=== PATIENT | female | born 1985 | race American Indian/Alaskan Native ===

== ENCOUNTER 2017-04-28 06:23 | Emergency (ER) | payer MEDICAID, OTHER ==
[2017-04-28 07:30] LABS: Basophils % (Auto) 0.5 % (0.0-1.8); Eosinophils % (Auto) 1.9 % (0.0-4.3); Hematocrit 40.3 % (30.3-42.9); Mean Corpuscular HGB Conc 32 % (30-34); Mean Corpuscular Volume 75 fl (79-97); Platelet Count 295 K/mm3 (140-440); Red Blood Count 5.38 M/mm3 (3.65-5.03); Red Cell Distribution Width 14.1 % (13.2-15.2); White Blood Count 8.2 K/mm3 (4.5-11.0)
[2017-04-28 07:32] LABS: Mean Corpuscular Hemoglobin 24 pg (28-32)
[2017-04-28 07:41] LABS: Anion Gap 17 mmol/L; Blood Urea Nitrogen 10 mg/dL (7-17); Calcium 9.1 mg/dL (8.4-10.2); Carbon Dioxide 24 mmol/L (22-30); Chloride 95.8 mmol/L (98-107); Glucose 205 mg/dL (65-100); Potassium 4.1 mmol/L (3.6-5.0); Sodium 133 mmol/L (137-145)
[2017-04-28 07:48] LABS: Bilirubin,Urine NEG (Negative); Blood,Urine NEG (Negative); Ketones,Urine NEG (Negative); Leukocyte Esterase,Urine NEG (Negative); Mucus,Urine FEW /HPF; Nitrite,Urine NEG (Negative); Protein,Urine <15 mg/dL mg/dL (Negative); Urobilinogen,Urine < 2.0 mg/dL (<2.0)
[2017-04-28 08:46] LABS: Bacteria,Urine 1+ /HPF (Negative)
--- NOTE | 2017-04-28 09:19 | XRay Report ---
ROUTINE CHEST, TWO VIEWS: HISTORY: Shortness of breath. The trachea, heart, mediastinal contour, lung salas and bony thorax are unremarkable. IMPRESSION: Unremarkable chest x-ray.
--- NOTE | 2017-04-28 15:09 | Emergency Department Report ---
ED Shortness of Breath HPI - General Chief Complaint: Dyspnea/Respdistress Stated Complaint: SHORTNESS OF BREATH, DIZZINESS Time Seen by Provider: 04/28/17 15:05 Source: patient Mode of arrival: Ambulatory Limitations: No Limitations - History of Present Illness Initial Comments: Patient is a 29 0 female with a history of diabetes presenting to the ER with dizziness. Patient reports she woke up this morning with chest pressure, shortness of breath, and a burning sensation extending from her toes only to the top of her head. Patient reports the chest pain shortness of breath had resolved but her dizziness still remains. The penis is described as room spinning and unsteady gait. Patient is a diabetic and takes insulin in the morning and at night, however did not take her insulin and did eat breakfast this morning. No other history of vertigo. Otherwise no fevers, chills, headache, abdominal pain, extremity swelling or pain, travel, falls, syncope, or sick contacts - Related Data Previous Rx's Medication Instructions Recorded Last Taken Type Meclizine [Antivert] 25 mg PO TID PRN #30 tablet 04/28/17 Unknown Rx Allergies Allergy/AdvReac Type Severity Reaction Status Date / Time No Known Allergies Allergy Unverified 05/23/15 08:08 ED Review of Systems ROS: Stated complaint: SHORTNESS OF BREATH, DIZZINESS Other details as noted in HPI Comment: All other systems reviewed and negative ED Past Medical Hx - Past Medical History Previous Medical History?: Yes Hx Diabetes: Yes Additional medical history: Seasonal allergies - Surgical History Additional Surgical History: - Social History Smoking Status: Never Smoker - Medications Home Medications: Home Medications Medication Instructions Recorded Confirmed Last Taken Type Meclizine [Antivert] 25 mg PO TID PRN #30 tablet 04/28/17 Unknown Rx ED Physical Exam - General Limitations: No Limitations General appearance: alert, in no apparent distress - Head Head exam: Present: atraumatic, normocephalic - Eye Eye exam: Present: normal appearance - ENT ENT exam: Present: mucous membranes moist - Neck Neck exam: Present: normal inspection - Respiratory Respiratory exam: Present: normal lung sounds bilaterally. Absent: respiratory distress - Cardiovascular Cardiovascular Exam: Present: regular rate, normal rhythm. Absent: systolic murmur, diastolic murmur, rubs, gallop - GI/Abdominal GI/Abdominal exam: Present: soft, normal bowel sounds - Extremities Exam Extremities exam: Present: normal inspection - Back Exam Back exam: Present: normal inspection - Neurological Exam Neurological exam: Present: alert, oriented X3, CN II-XII intact, abnormal gait (Pt is unsteady on her feet due to dizziness). Absent: motor sensory deficit - Psychiatric Psychiatric exam: Present: normal affect, normal mood - Skin Skin exam: Present: warm, dry, intact, normal color. Absent: rash ED Course Vital Signs 04/28/17 04/28/17 04/28/17 07:05 14:22 14:54 Temperature 98.1 F Pulse Rate 66 72 Respiratory 18 16 Rate Blood Pressure 120/83 Blood Pressure 135/96 [Right] O2 Sat by Pulse 97 98 87 Oximetry 04/28/17 04/28/17 04/28/17 15:00 15:12 15:13 Temperature 98.3 F Pulse Rate 80 Respiratory 18 18 Rate Blood Pressure 130/73 Blood Pressure 123/82 [Right] O2 Sat by Pulse 99 100 100 Oximetry - Reevaluation(s) Reevaluation #1: 04/28/17 16:59 Pt re-evalauted, patient reports significant improvement. Pt ambulating in the Ed without neurological dysfunction, advised patient not to drive if she is dizzy, patient understood ED Medical Decision Making - Lab Data Result diagrams: 04/28/17 07:13 04/28/17 07:13 - EKG Data -: EKG Interpreted by Me - EKG Data 04/28/17 15:08 06:28 EKG NSR with SR at 72 bpm, QTc:431ms, normal axis, no LVH, no ST changes, no STEMI Critical care attestation.: If time is entered above; I have spent that time in minutes in the direct care of this critically ill patient, excluding procedure time. ED Disposition Clinical Impression: Dizzinesses Disposition: DC-01 TO HOME OR SELFCARE Is pt being admited?: No Condition: Stable Additional Instructions: PLEASE DO NOT OPERATE ANY VEHICLES OR MACHINERY IF YOU ARE EXPERIENCING DIZZINESS Prescriptions: Meclizine [Antivert] 25 mg PO TID PRN #30 tablet PRN Reason: Vertigo Referrals: PRIMARY CARE, [Primary Care Provider] - 3-5 Days Forms: Work/School Release Form(ED)
[2017-04-28] MEDS ORDERED: NACL 0.9% 1000 ML 1,000 ML IV ONE (15:13)
[2017-04-28] MEDS ORDERED: ANTIVERT PO ONE (15:13)
[2017-04-28 17:56] VITALS: BP 130/76
== END 2017-04-28 18:32 | disposition home or self-care (01) ==
LOC: ED 06:23
DX: R42 Dizziness and giddiness (principal); E11.9 Type 2 diabetes mellitus without complications
CPT/HCPCS: 36415; 71020; 80048; 81001; 82962; 84484; 84703; 85025; 85379; 93005; 93010; 96360; 99284; J7030

== ENCOUNTER 2019-07-08 09:05 | Emergency (ER) | payer BC ==
[2019-07-08] MEDS ORDERED: NACL 0.9% 1000 ML 1,000 ML IV ONE ×3 (09:41→10:51)
[2019-07-08 10:04] LABS: Basophils # (Auto) 0.1 K/mm3 (0.0-0.1); Eosinophils % (Auto) 0.6 % (0.0-4.3); Hematocrit 40.7 % (30.3-42.9); Hemoglobin 13.4 gm/dl (10.1-14.3); Lymphocytes # (Auto) 1.9 K/mm3 (1.2-5.4); Lymphocytes % (Auto) 24.5 % (13.4-35.0); Mean Corpuscular HGB Conc 33 % (30-34); Mean Corpuscular Volume 75 fl (79-97); Monocytes # (Auto) 0.5 K/mm3 (0.0-0.8); Platelet Count 281 K/mm3 (140-440); Red Blood Count 5.41 M/mm3 (3.65-5.03)
[2019-07-08 10:20] LABS: Alanine Aminotransferase 11 units/L (7-56); Albumin 4.1 g/dL (3.9-5); BUN/Creatinine Ratio 20; Blood Urea Nitrogen 10 mg/dL (7-17); Calcium 9.4 mg/dL (8.4-10.2); Hemolysis Index 46
[2019-07-08 10:45] LABS: Bilirubin,Urine NEG (Negative); Blood,Urine NEG (Negative); Color,Urine Straw (Yellow); Protein,Urine <15 mg/dL mg/dL (Negative); Urobilinogen,Urine < 2.0 mg/dL (<2.0)
[2019-07-08] MEDS ORDERED: HumuLIN R IV ONE (10:51)
--- NOTE | 2019-07-08 13:20 | Emergency Department Report ---
ED General Adult HPI - General Chief complaint: Dizziness Stated complaint: DIZZY/DOUBLE VISION/HBS Time Seen by Provider: 07/08/19 09:41 Source: patient Mode of arrival: Ambulatory Limitations: No Limitations - History of Present Illness Initial comments: Patient is a 34-year-old female with a past smoking history of diabetes who is presenting with 2 weeks of progressively worsening fatigue. Patient also started having a headache and some mild nausea with no vomiting today. Patient states that she took her blood sugar earlier today and it read high. The patient denies current nausea vomiting fevers chills or diarrhea. Patient states that she does have some urinary frequency but no dysuria. - Related Data Previous Rx's Medication Instructions Recorded Last Taken Type Meclizine [Antivert] 25 mg PO TID PRN #30 tablet 04/28/17 Unknown Rx Ibuprofen [Motrin] 600 mg PO Q8H PRN #20 tablet 10/01/18 Unknown Rx Ondansetron [Zofran Odt] 4 mg PO Q8HR PRN #20 tab.rapdis 10/01/18 Unknown Rx Allergies Allergy/AdvReac Type Severity Reaction Status Date / Time No Known Allergies Allergy Verified 09/25/18 14:14 ED Review of Systems ROS: Stated complaint: DIZZY/DOUBLE VISION/HBS Other details as noted in HPI Comment: All other systems reviewed and negative ED Past Medical Hx - Past Medical History Previous Medical History?: Yes Hx Diabetes: Yes Additional medical history: Seasonal allergies - Surgical History Past Surgical History?: Yes Additional Surgical History: - Social History Smoking Status: Never Smoker Substance Use Type: None - Medications Home Medications: Home Medications Medication Instructions Recorded Confirmed Last Taken Type Meclizine [Antivert] 25 mg PO TID PRN #30 tablet 04/28/17 Unknown Rx Ibuprofen [Motrin] 600 mg PO Q8H PRN #20 tablet 10/01/18 Unknown Rx Ondansetron [Zofran Odt] 4 mg PO Q8HR PRN #20 tab.rapdis 10/01/18 Unknown Rx ED Physical Exam - General Limitations: No Limitations General appearance: alert, in no apparent distress - Head Head exam: Present: atraumatic, normocephalic - Eye Eye exam: Present: normal appearance, PERRL, EOMI - ENT ENT exam: Present: mucous membranes dry - Neck Neck exam: Present: normal inspection - Respiratory Respiratory exam: Present: normal lung sounds bilaterally. Absent: respiratory distress, wheezes, rales, rhonchi - Cardiovascular Cardiovascular Exam: Present: regular rate, normal rhythm. Absent: systolic murmur, diastolic murmur, rubs, gallop - GI/Abdominal GI/Abdominal exam: Present: soft, normal bowel sounds. Absent: distended, tenderness, guarding - Extremities Exam Extremities exam: Present: normal inspection - Back Exam Back exam: Present: normal inspection - Neurological Exam Neurological exam: Present: alert, oriented X3 - Psychiatric Psychiatric exam: Present: normal affect, normal mood - Skin Skin exam: Present: warm, dry, intact, normal color. Absent: rash ED Course Vital Signs 07/08/19 07/08/19 09:13 09:55 Temperature 98.4 F Pulse Rate 91 H Respiratory 16 16 Rate Blood Pressure 123/77 O2 Sat by Pulse 97 Oximetry ED Medical Decision Making - Lab Data Result diagrams: 07/08/19 09:55 07/08/19 09:55 Lab Results 07/08/19 07/08/19 07/08/19 Range/Units 09:21 09:55 09:55 WBC 7.6 (4.5-11.0) K/mm3 RBC 5.41 H (3.65-5.03) M/mm3 Hgb 13.4 (10.1-14.3) gm/dl Hct 40.7 (30.3-42.9) % MCV 75 L (79-97) fl MCH 25 L (28-32) pg MCHC 33 (30-34) % RDW 14.0 (13.2-15.2) % Plt Count 281 (140-440) K/mm3 Lymph % (Auto) 24.5 (13.4-35.0) % Lynn % (Auto) 6.0 (0.0-7.3) % Eos % (Auto) 0.6 (0.0-4.3) % Baso % (Auto) 1.0 (0.0-1.8) % Lymph # 1.9 (1.2-5.4) K/mm3 Lynn # 0.5 (0.0-0.8) K/mm3 Eos # 0.0 (0.0-0.4) K/mm3 Baso # 0.1 (0.0-0.1) K/mm3 Seg Neutrophils % 67.9 (40.0-70.0) % Seg Neutrophils # 5.1 (1.8-7.7) K/mm3 Sodium 131 L (137-145) mmol/L Potassium 4.1 (3.6-5.0) mmol/L Chloride 95.1 L (98-107) mmol/L Carbon Dioxide 22 (22-30) mmol/L Anion Gap 18 mmol/L BUN 10 (7-17) mg/dL Creatinine 0.5 L (0.7-1.2) mg/dL Estimated GFR > 60 ml/min BUN/Creatinine Ratio 20 % Glucose 485 H (65-100) mg/dL POC Glucose 483 H (70-105) Calcium 9.4 (8.4-10.2) mg/dL Total Bilirubin 0.20 (0.1-1.2) mg/dL AST 17 (5-40) units/L ALT 11 (7-56) units/L Alkaline Phosphatase 109 (35-129) units/L Total Protein 8.1 (6.3-8.2) g/dL Albumin 4.1 (3.9-5) g/dL Albumin/Globulin Ratio 1.0 % Lipase 74 H (13-60) units/L HCG, Qual (Negative) Urine Color (Yellow) Urine Turbidity (Clear) Urine pH (5.0-7.0) Ur Specific [place] (1.003-1.030) Urine Protein (Negative) mg/dL Urine Glucose (UA) (Negative) mg/dL Urine Ketones (Negative) mg/dL Urine Blood (Negative) Urine Nitrite (Negative) Urine Bilirubin (Negative) Urine Urobilinogen (<2.0) mg/dL Ur Leukocyte Esterase (Negative) Urine WBC (Auto) (0.0-6.0) /HPF Urine RBC (Auto) (0.0-6.0) /HPF U Epithel Cells (Auto) (0-13.0) /HPF 07/08/19 07/08/19 07/08/19 Range/Units 09:55 10:15 11:47 WBC (4.5-11.0) K/mm3 RBC (3.65-5.03) M/mm3 Hgb (10.1-14.3) gm/dl Hct (30.3-42.9) % MCV (79-97) fl MCH (28-32) pg MCHC (30-34) % RDW (13.2-15.2) % Plt Count (140-440) K/mm3 Lymph % (Auto) (13.4-35.0) % Lynn % (Auto) (0.0-7.3) % Eos % (Auto) (0.0-4.3) % Baso % (Auto) (0.0-1.8) % Lymph # (1.2-5.4) K/mm3 Lynn # (0.0-0.8) K/mm3 Eos # (0.0-0.4) K/mm3 Baso # (0.0-0.1) K/mm3 Seg Neutrophils % (40.0-70.0) % Seg Neutrophils # (1.8-7.7) K/mm3 Sodium (137-145) mmol/L Potassium (3.6-5.0) mmol/L Chloride (98-107) mmol/L Carbon Dioxide (22-30) mmol/L Anion Gap mmol/L BUN (7-17) mg/dL Creatinine (0.7-1.2) mg/dL Estimated GFR ml/min BUN/Creatinine Ratio % Glucose (65-100) mg/dL POC Glucose 329 H (70-105) Calcium (8.4-10.2) mg/dL Total Bilirubin (0.1-1.2) mg/dL AST (5-40) units/L ALT (7-56) units/L Alkaline Phosphatase (35-129) units/L Total Protein (6.3-8.2) g/dL Albumin (3.9-5) g/dL Albumin/Globulin Ratio % Lipase (13-60) units/L HCG, Qual Negative (Negative) Urine Color Straw (Yellow) Urine Turbidity Clear (Clear) Urine pH 6.0 (5.0-7.0) Ur Specific [place] 1.033 H (1.003-1.030) Urine Protein <15 mg/dl (Negative) mg/dL Urine Glucose (UA) >=500 (Negative) mg/dL Urine Ketones Tr (Negative) mg/dL Urine Blood Neg (Negative) Urine Nitrite Neg (Negative) Urine Bilirubin Neg (Negative) Urine Urobilinogen < 2.0 (<2.0) mg/dL Ur Leukocyte Esterase Neg (Negative) Urine WBC (Auto) 8.0 H (0.0-6.0) /HPF Urine RBC (Auto) 2.0 (0.0-6.0) /HPF U Epithel Cells (Auto) 1.0 (0-13.0) /HPF 07/08/19 Range/Units 13:17 WBC (4.5-11.0) K/mm3 RBC (3.65-5.03) M/mm3 Hgb (10.1-14.3) gm/dl Hct (30.3-42.9) % MCV (79-97) fl MCH (28-32) pg MCHC (30-34) % RDW (13.2-15.2) % Plt Count (140-440) K/mm3 Lymph % (Auto) (13.4-35.0) % Lynn % (Auto) (0.0-7.3) % Eos % (Auto) (0.0-4.3) % Baso % (Auto) (0.0-1.8) % Lymph # (1.2-5.4) K/mm3 Lynn # (0.0-0.8) K/mm3 Eos # (0.0-0.4) K/mm3 Baso # (0.0-0.1) K/mm3 Seg Neutrophils % (40.0-70.0) % Seg Neutrophils # (1.8-7.7) K/mm3 Sodium (137-145) mmol/L Potassium (3.6-5.0) mmol/L Chloride (98-107) mmol/L Carbon Dioxide (22-30) mmol/L Anion Gap mmol/L BUN (7-17) mg/dL Creatinine (0.7-1.2) mg/dL Estimated GFR ml/min BUN/Creatinine Ratio % Glucose (65-100) mg/dL POC Glucose 257 H (70-105) Calcium (8.4-10.2) mg/dL Total Bilirubin (0.1-1.2) mg/dL AST (5-40) units/L ALT (7-56) units/L Alkaline Phosphatase (35-129) units/L Total Protein (6.3-8.2) g/dL Albumin (3.9-5) g/dL Albumin/Globulin Ratio % Lipase (13-60) units/L HCG, Qual (Negative) Urine Color (Yellow) Urine Turbidity (Clear) Urine pH (5.0-7.0) Ur Specific [place] (1.003-1.030) Urine Protein (Negative) mg/dL Urine Glucose (UA) (Negative) mg/dL Urine Ketones (Negative) mg/dL Urine Blood (Negative) Urine Nitrite (Negative) Urine Bilirubin (Negative) Urine Urobilinogen (<2.0) mg/dL Ur Leukocyte Esterase (Negative) Urine WBC (Auto) (0.0-6.0) /HPF Urine RBC (Auto) (0.0-6.0) /HPF U Epithel Cells (Auto) (0-13.0) /HPF - Medical Decision Making Patient is a 34-year-old female who is presenting with hyperglycemia. Patient was not in DKA but did show some signs of significant dehydration. Patient was hydrated. Patient is feeling much improved after hydration. Patient's glucose has dropped to 257. Patient is stable for discharge at this time. Critical care attestation.: If time is entered above; I have spent that time in minutes in the direct care of this critically ill patient, excluding procedure time. ED Disposition Clinical Impression: Hyperglycemia, Dehydration Disposition: DC-01 TO HOME OR SELFCARE Is pt being admited?: No Does the pt Need Aspirin: No Condition: Stable Instructions: Diabetic Hyperglycemia (ED) Referrals: PRIMARY CARE, [Primary Care Provider] - 3-5 Days Time of Disposition: 13:20
[2019-07-08 13:21] VITALS: BP 134/95
== END 2019-07-08 13:24 | disposition home or self-care (01) ==
LOC: ED 09:05
DX: E11.65 Type 2 diabetes mellitus with hyperglycemia (principal); E86.0 Dehydration; Z79.899 Other long term (current) drug therapy
CPT/HCPCS: 36415; 80053; 81001; 82962; 83690; 84703; 85025; 96361; 96374; 99283; J7030; J1815